=== PATIENT | female | born 1950 | race Caucasian/White ===

== ENCOUNTER → 2020-02-11 | Outpatient (REF) | payer MEDICARE ==
[2020-02-11 17:03] LABS: C REACTIVE PROTEIN QUANTITATIV 0.73 MG/DL (0.00-0.30)
[2020-02-11 17:11] LABS: HEPATITIS B SURFACE ANTIBODY NEGATIVE (POSITIVE)
[2020-02-11 17:21] LABS: HEPATITIS B SURFACE ANTIGEN NEGATIVE (NEGATIVE)
[2020-02-11 17:49] LABS: HEPATITIS C VIRUS ABY INDEX 0.1 INDEX (<0.8)
== END ==
LOC: M SFHCRHEU 14:43
PROVIDERS: ATTEND Internal Medicine
DX: M05.79 Rheumatoid arthritis with rheumatoid factor of multiple sites without organ or systems involvement (principal); R76.8 Other specified abnormal immunological findings in serum
CPT/HCPCS: 85652; 86140; 86704; 86706; 86803; 87340; G0463